=== PATIENT | female | born 1960 | race Caucasian/White ===

== ENCOUNTER 2019-12-29 17:18 | Observation (INO) | payer OTHER ==
[2019-12-30 03:17] VITALS: BMI 21.7
[2019-12-30 10:07] VITALS: BP 117/61; TEMP 97.2
[2019-12-30 10:32] VITALS: O2SAT 98
== END 2019-12-30 10:03 | disposition home or self-care (01) ==
LOC: ER 17:18 → 2ND 20:32
PROVIDERS: ADMIT Orthopaedic Surgery; ATTEND Orthopaedic Surgery
PROC: 0PSJ04Z Reposition Left Radius with Internal Fixation Device, Open Approach (ICD-10-PCS; principal; 2019-12-29)
DX: S52.502B Unspecified fracture of the lower end of left radius, initial encounter for open fracture type I or II (principal); W18.39XA Other fall on same level, initial encounter; Y93.51 Activity, roller skating (inline) and skateboarding; Y92.9 Unspecified place or not applicable
CPT/HCPCS: 96374; 96375; 99284; G0378; J0330; J0690; J1100; J1170; J2175; J2270; J2405; J2704; J3010; J7120; Q0163

== ENCOUNTER 2024-01-01 11:09 | Day surgery (SDC) | payer OTHER ==
[2023-12-31 16:03] LABS: Absolute Eosinophils 0.1 K/uL (0-0.5); Absolute Lymphocytes (CBC) 1.5 K/uL (0.7-4.9); Absolute Monocytes 0.5 K/uL (0.1-1.3); Absolute Neutrophil 2.6 K/uL (1.8-8.0); Basophils % 0.5 % (0-1.3); Eosinophils % 1.4 % (0-4.4); Hematocrit 37.2 % (36.0-45.0); Hemoglobin 12.5 g/dL (12.0-15.0); MCH 33.5 pg (27.0-35.0); MCHC 33.5 g/dL (32.0-36.0); MPV 8.6 fL (7.6-11.3); Monocytes % 10.9 % (3.3-12.3); Neutrophils % 55.2 % (41.7-73.7); Nucleated Red Blood Cells % 0.1 % (0-0); Platelets 251 thou/uL (152-406); RBC Red Blood Cell Count 3.72 M/uL (3.86-4.86); Red Cell Distribution Width 12.4 % (12.1-15.2)
[2023-12-31 16:19] LABS: Anion Gap 8.3 mEq/L (5.0-15.0); Potassium 4.3 mEq/L (3.5-5.1)
[2024-01-01] MEDS: Ringers Lactate 1,000 ML IV ONE (11:30)
[2024-01-01] MEDS ORDERED: LIDOCAINE 1% MPF 5 ML VIAL ONE (11:56)
[2024-01-01] MEDS ORDERED: propofoL 200 MG/20 ML VIAL IV ONE (11:57)
[2024-01-01 13:34] VITALS: BP 134/77; TEMP 97.4; O2SAT 100
== END 2024-01-01 13:15 | disposition home or self-care (01) ==
LOC: OR 11:09
PROVIDERS: ATTEND Surgery
PROC: 0DBL8ZX Excision of Transverse Colon, Via Natural or Artificial Opening Endoscopic, Diagnostic (ICD-10-PCS; 2024-01-01)
PROC: 0DBN8ZX Excision of Sigmoid Colon, Via Natural or Artificial Opening Endoscopic, Diagnostic (ICD-10-PCS; 2024-01-01)
PROC: 0DBK8ZX Excision of Ascending Colon, Via Natural or Artificial Opening Endoscopic, Diagnostic (ICD-10-PCS; principal; 2024-01-01 12:00)
DX: Z12.11 Encounter for screening for malignant neoplasm of colon (principal); D12.2 Benign neoplasm of ascending colon; D12.5 Benign neoplasm of sigmoid colon; E78.00 Pure hypercholesterolemia, unspecified; F41.9 Anxiety disorder, unspecified
CPT/HCPCS: 36415; 80048; 85025; 88305; 93005; J2001; J2704; J7120